=== PATIENT | female | born 1995 | race Caucasian/White ===

== ENCOUNTER 2017-04-19 16:58 | Emergency (ER) | payer BC ==
[~2017-04-19] VITALS: Ht 162.6 cm; Wt 72.7 kg
[2017-04-19 17:00] VITALS: BP 123/66; TEMP 98.4
[2017-04-19] MEDS ORDERED: BACTRIM DS 8001 TAB PO (17:37)
[2017-04-19 17:49] VITALS: PULSE 96
[2017-04-20] MEDS ORDERED: NORCO 325 MG-51 TAB PO (02:02)
[2017-04-20] MEDS ORDERED: CEPHALEXIN500 M1 PO (02:02)
== END 2017-04-19 17:49 | disposition home or self-care (01) ==
LOC: COL.ER 16:58
DX: L03.112 Cellulitis of left axilla (principal); R21 Rash and other nonspecific skin eruption

== ENCOUNTER 2017-04-20 01:14 | Emergency (ER) | payer BC ==
[~2017-04-20] VITALS: Ht 162.6 cm; Wt 72.7 kg
[~2017-04-20 01:14] MED LIST: BACTRIM DS 8001 TAB PO
[2017-04-20 01:16] VITALS: BP 124/60; PULSE 94; TEMP 99.1
[2017-04-20] MEDS ORDERED: NORCO 325 MG-51 TAB PO (02:02)
[2017-04-20] MEDS ORDERED: CEPHALEXIN500 M1 PO (02:02)
== END 2017-04-20 02:31 | disposition home or self-care (01) ==
LOC: COL.ER 01:14
DX: S20.362A Insect bite (nonvenomous) of left front wall of thorax, initial encounter (principal); W57.XXXA Bitten or stung by nonvenomous insect and other nonvenomous arthropods, initial encounter
CPT/HCPCS: J1170; J1885; J2550